=== PATIENT | female | born 1995 | race Hispanic/Latino ===

== ENCOUNTER 2019-02-20 20:19 | Emergency (ER) | payer OTHER ==
[2019-02-20] MEDS ORDERED: ACETAMINOPHEN EXTRA STRENGTH 500 MG TABLET ONE (20:59)
== END 2019-02-20 21:11 | disposition home or self-care (01) ==
LOC: EDH 20:19
DX: S90.31XA Contusion of right foot, initial encounter (principal); Z98.890 Other specified postprocedural states; W20.8XXA Other cause of strike by thrown, projected or falling object, initial encounter; Y93.89 Activity, other specified; Y92.89 Other specified places as the place of occurrence of the external cause; Y99.8 Other external cause status
CPT/HCPCS: 73630

== ENCOUNTER 2021-04-28 13:30 | Emergency (ER) | payer MEDICAID ==
[~2021-04-28] VITALS: Ht 157.5 cm; Wt 93.0 kg
[2021-04-28] MEDS ORDERED: ALBUHFA IH (15:07)
[2021-04-28] MEDS ORDERED: FLUT1DIS IH (15:07)
[2021-04-28 15:48] VITALS: BP 115/71
== END 2021-04-28 16:10 | disposition home or self-care (01) ==
LOC: EDH 13:30
DX: U07.1 COVID-19 (principal); B34.9 Viral infection, unspecified; Z79.899 Other long term (current) drug therapy; Z79.51 Long term (current) use of inhaled steroids
CPT/HCPCS: 71045; 81025